=== PATIENT | female | born 1965 | race African-American/Black ===

== ENCOUNTER 2023-12-21 21:21 | Emergency (ER) | payer MEDICARE, OTHER ==
[2023-12-21 21:34] VITALS: PULSE 69; RESP 16; BMI 23.4
[2023-12-21] MEDS ORDERED: TETRACAINE 0.5% OPHTH SOLN 2 ML BOTTLE ONE (22:06)
[2023-12-21 22:56] LABS: BASO % 0.9 % (0-2.0); EOS % 0.7 % (0-4.5); HEMATOCRIT 34.3 % (32.4-45.2); HEMOGLOBIN 11.7 GM/dL (10.7-15.3); LYMPH % 14.5 % (8-40); MCH 34.9 pg (25.7-33.7); MCHC 34.2 g/dl (32.0-36.0); MEAN CELL VOLUME 102.1 fl (80-96); MEAN PLT VOLUME 7.9 fl (7.5-11.1); MONO % 5.8 % (3.8-10.2); NEUT % 78.1 % (42.8-82.8); PLATELET COUNT 212 10^3/uL (134-434); RBC 3.36 M/mm3 (3.60-5.2); RDW 16.9 % (11.6-15.6); WHITE BLOOD COUNT 4.2 K/mm3 (4.0-10.0)
[2023-12-21] MEDS: morphine CARPU-JECT 2 MG/1 ML DISP.SYRIN IVPUSH ONE (23:00)
[2023-12-21] MEDS: ONDANSETRON 4 MG/2 ML VIAL IVPUSH ONE (23:00)
[2023-12-21 23:15] LABS: CHLORIDE 98 mmol/L (98-107); POTASSIUM 5.3 mmol/L (3.5-5.1); SODIUM 136 mmol/L (136-145)
[2023-12-21 23:17] LABS: ALBUMIN 3.6 g/dl (3.4-5.0); ANION GAP 11 mmol/L (4-13); BLOOD UREA NITROGEN 31.4 mg/dL (7-18); CALCIUM 9.6 mg/dL (8.5-10.1); CO2 26 mmol/L (21-32); GLUCOSE,RANDOM 129 mg/dL (74-106); MAGNESIUM 2.3 mg/dL (1.8-2.4)
[2023-12-21 23:20] LABS: SGOT/AST 47 U/L (15-37); SGPT/ALT 18 U/L (13-61)
[2023-12-21 23:21] LABS: PHOSPHOROUS 4.1 mg/dL (2.5-4.9)
[2023-12-21] MEDS: TETRACAINE 0.5% OPHTH SOLN 2 ML BOTTLE OD ONE (23:21)
[2023-12-21 23:22] LABS: BILIRUBIN,TOTAL 0.5 mg/dL (0.2-1); TOT PROT 8.2 g/dl (6.4-8.2)
[2023-12-21 23:23] LABS: ALK PHOS 101 U/L (45-117)
[2023-12-21 23:25] LABS: CREATININE 8.1 mg/dL (0.55-1.3)
[2023-12-22] MEDS: TIMOLOL 0.5% OPHTHALMIC SOL 5 ML BOTTLE OD ONE (00:11)
[2023-12-22] MEDS: DORZOLAMIDE 2% HCL OPHTHALMIC SOLUTION 10 ML BOTTLE OD ONE (00:11)
[2023-12-22] MEDS: DEXTROSE 5% IV ONE (00:22)
[2023-12-22] MEDS: WATER IV ONE (00:22)
[2023-12-22] MEDS: ACETAZOLAMIDE IV ONE (00:22)
[2023-12-22 00:23] VITALS: BP 158/77; TEMP 98.1
[2023-12-22] MEDS ORDERED: BRIMONIDINE TARTRATE 0.2% OPHTHALMIC 5 ML BOTTLE OD ONE (23:55)
== END 2023-12-22 00:25 | disposition short-term general hospital (02) ==
LOC: JER 21:21
DX: H40.211 Acute angle-closure glaucoma, right eye (principal); H57.11 Ocular pain, right eye; R11.2 Nausea with vomiting, unspecified
CPT/HCPCS: 36415; 76512; 80053; 83735; 84100; 85025; 93005; 93010; 99285-25